=== PATIENT | female | born 1945 | race Caucasian/White ===

== ENCOUNTER 2019-06-12 16:17 | Inpatient (IN) | payer BC, MEDICARE ==
[~2019-06-12] VITALS: Ht 167.6 cm; Wt 47.2 kg
--- NOTE | 2019-06-12 19:50 | NUR ---
Received patient awake and oriented x 3 via gurney. Oriented patient to her bed and room. Denies SOB but c/o pain in the left lower extremities. Patient has a history of CVA with right sided weakness. snf assessment done. Skin is intact. Vital signs stable. Safety initiated. Call light within reach. Will closely monitor.
[2019-06-12] MEDS ORDERED: ROSU10TA2 PO (21:00)
[2019-06-12] MEDS ORDERED: HYDR-3972 PO (21:00)
[2019-06-12] MEDS ORDERED: NEBI5TAB8 PO (21:00)
[2019-06-12] MEDS ORDERED: HYDR-3980 PO (21:00)
[2019-06-12] MEDS ORDERED: ASPI81TA31 PO (21:00)
[2019-06-12 21:04] VITALS: BP 124/70
[2019-06-12] MEDS ORDERED: HYDROCODONE/APAP 5-325MG TABLET PO PRN (21:15)
[2019-06-12] MEDS: HYDROCODONE/APAP 10-325 MG TABLET PO PRN (21:34)
--- NOTE | 2019-06-12 21:45 | NUR ---
C/o pain on the left lower ext. 01/19. [place] 10-325 given, will closely monitor.
[2019-06-13] MEDS: HYDROCODONE/APAP 10-325 MG TABLET PO PRN ×2 (01:57→08:14)
--- NOTE | 2019-06-13 01:57 | NUR ---
Patient c/o pain in the left lower ext. 01/19. [place] given. Will continue to monitor.
[2019-06-13 05:30] VITALS: BP 148/76
--- NOTE | 2019-06-13 05:34 | NUR ---
Patient slept intermittently t/o shift. C/O pain in the left lower ext. heat pads and medication given, stated relief. Vital signs stable. Safety and comfort measures maintained t/o shift. All meds given as ordered. All needs met.
[2019-06-13 07:20] LABS: BASOPHILS % (AUTO) 0.5 % (0.0-2.0); EOSINOPHILS # (AUTO) 0.3 K/uL (0.0-0.7); EOSINOPHILS % (AUTO) 3.3 % (0.0-7.0); HEMATOCRIT 43.4 % (31.2-41.9); HEMOGLOBIN 14.4 g/dL (10.9-14.3); LYMPHOCYTES # (AUTO) 2.3 K/uL (20.0-40.0); LYMPHOCYTES % (AUTO) 28.4 % (20.5-51.5); MEAN CORPUSCULAR HEMOGLOBIN 28.7 uug (24.7-32.8); MEAN CORPUSCULAR HGB CONC 33 g/dL (32.3-35.6); MEAN CORPUSCULAR VOLUME 86.7 fL (75.5-95.3); MONOCYTES # (AUTO) 0.8 K/uL (2.0-10.0); MONOCYTES % (AUTO) 9.7 % (0.0-11.0); NEUTROPHILS # (AUTO) 4.7 K/uL (1.8-8.9); NEUTROPHILS % (AUTO) 58.1 % (38.5-71.5); PLATELET COUNT (AUTO) 340 K/uL (179-408); RED BLOOD CELL COUNT(AUTO) 5.01 MIL/uL (3.63-4.92); WHITE BLOOD COUNT (AUTO) 8.1 K/uL (3.8-11.8)
[2019-06-13 07:30] VITALS: BP 96/53
[2019-06-13 07:37] LABS: IRON, SERUM 50 ug/dL (50-175); THYROID STIMULATING HORMONE 1.294 mIU/mL (0.358-3.740)
[2019-06-13 07:56] LABS: ALANINE AMINOTRANSFERASE 18 U/L (14-59); ALKALINE PHOSPHATASE 59 U/L (50-136); ASPARTATE AMINOTRANSFERASE 18 U/L (15-37); BILIRUBIN,TOTAL 0.7 mg/dL (0.2-1.0); CARBON DIOXIDE 29 mmol/L (21-32); CHLORIDE 96 mmol/L (98-107); CHOLESTEROL 172 mg/dL (<200); CREATININE 0.7 mg/dL (0.6-1.3); GLUCOSE 95 mg/dL (74-106); HDL CHOLESTEROL 45 mg/dL (40-60); MAGNESIUM 1.9 mg/dL (1.8-2.4); PHOSPHOROUS 3.7 mg/dL (2.5-4.9); POTASSIUM 3.9 mmol/L (3.5-5.1); TOTAL PROTEIN, SERUM 7.1 g/dL (6.4-8.2); TRIGLYCERIDES 118 MG/DL (30-150); UREA NITROGEN, BLOOD 20 mg/dL (7-18)
[2019-06-13] MEDS: ASPIRIN 81 MG TAB.CHEW PO SCH (08:14)
[2019-06-13] MEDS: METOPROLOL TARTRATE 25 MG TABLET PO SCH ×2 (08:17→20:20)
[2019-06-13] MEDS ORDERED: Medication Not On Formulary EA (Rosuvastatin Calcium (Crestor) 10 MG) PO SCH (09:00)
[2019-06-13] MEDS: OXYCODONE HCL 5 MG TABLET PO PRN ×2 (11:10→20:26)
[2019-06-13 15:31] VITALS: BP 148/56
[2019-06-13] MEDS ORDERED: methylPREDNISolone ACETATE 80 MG VIAL IM ONE (19:00)
--- NOTE | 2019-06-13 19:20 | NUR ---
RECEIVED PATIENT IN BED, AWAKE. COMPLAINTS OF PAIN IN THE LEFT THIGH. WILL MEDICATE APPROPRIATELY. AO X 4. SAFETY PRECAUTIONS INITIATED. CALL LIGHT WITHIN REACH. WILL MONITOR ACCORDINGLY. Addendum: 06/14/19 at 0318 by TARSHA MARROQUIN RN PER DAY SHIFT NURSE: PATIENT'S DIET NEEDS TO BE CHANGED FROM REGULAR TO SOFT.
[2019-06-13 19:52] VITALS: BP 99/65
[2019-06-13] MEDS: ATORVASTATIN 20 MG TABLET PO SCH (20:20)
[2019-06-14] MEDS: OXYCODONE HCL 5 MG TABLET PO PRN ×4 (02:52→20:49)
--- NOTE | 2019-06-14 05:03 | NUR ---
PATIENT SLEPT INTERMITTENTLY THROUGHOUT THE NIGHT. COMPLAINED OF PAIN IN LEFT LEG. MEDICATED WITH PRN PAIN MEDICATIONS. SWALLOWS PILLS WITH APPLE SAUCE OR PUDDING. DIET CHANGED TO SOFT DIET. NO SIGNIFICANT CHANGE IN PATIENT CONDITION. WILL ENDORSE TO ONCOMING NURSE.
[2019-06-14 05:39] VITALS: BP 125/65
[2019-06-14 07:46] VITALS: BP 134/69
--- NOTE | 2019-06-14 08:00 | NUR ---
Received patient awake in bed lying flat, does not wanted to elevate HOB d/t pain. AAOx4. Complaining of LLE pain; will medicate appropriately. Safety measures implemented; plan of care initiated. Will continue to monitor.
[2019-06-14] MEDS ORDERED: PREGABALIN 25 MG CAPSULE PO SCH (09:00)
[2019-06-14] MEDS: METOPROLOL TARTRATE 25 MG TABLET PO SCH ×2 (09:00→20:30)
[2019-06-14] MEDS: ASPIRIN 81 MG TAB.CHEW PO SCH (09:10)
--- NOTE | 2019-06-14 13:19 | NUR ---
INTERDISCIPLINARY TEAM CONFERENCE
--- NOTE | 2019-06-14 13:47 | NUR ---
Received an order from Dr. De Paz during IDT meeting to increase Lyrica to 50mg PO daily for better pain control.
[2019-06-14 15:00] VITALS: BP 125/54
--- NOTE | 2019-06-14 18:15 | NUR ---
Patient complained of L leg pain throughout shift; medicated appropriately with PRN oxycodone 15 mg x2. Verbalized medication is effective but pain is still there. Heat packs applied for comfort. No s/s of acute distress. Will endorse care accordingly.
[2019-06-14 19:41] VITALS: BP 134/69
--- NOTE | 2019-06-14 19:50 | NUR ---
PATIENT ALERT ORIENTED, NO SOB NO CHEST PAIN. PATIENT COMPLAIN OF PAIN/DISCOMFORT ON LOWER BACK, AND LOWER EXTREMITIES, WILL MEDICATE PATIENT ORDERED. PATIENT KEPT COMFORTABLE, CALL LIGHT WITHIN REACH. CONT TO MONITOR.
[2019-06-14] MEDS: ATORVASTATIN 20 MG TABLET PO SCH (20:29)
[2019-06-15 05:42] VITALS: BP 117/61
--- NOTE | 2019-06-15 06:32 | NUR ---
PATIENT ALERT ORIENTED, NO SOB NO CHEST PAIN. PATIENT REQUIRES TOTAL ASSIST WITH ADL'S, KEPT COMFORTABLE, CALL LIGHT WITHIN REACH. CONT TO MONITOR.
[2019-06-15 08:00] VITALS: BP 143/73
[2019-06-15] MEDS: PREGABALIN 25 MG CAPSULE PO SCH (08:05)
[2019-06-15] MEDS: ASPIRIN 81 MG TAB.CHEW PO SCH (08:06)
[2019-06-15] MEDS: METOPROLOL TARTRATE 25 MG TABLET PO SCH ×2 (08:07→20:58)
[2019-06-15] MEDS: OXYCODONE HCL 5 MG TABLET PO PRN ×2 (09:06→19:42)
--- NOTE | 2019-06-15 12:27 | NUR ---
PATIENT COMPLAINED THAT IT IS TOO NOISY IN THIS ROOM, ALSO STATED THAT SHE CAN NOT SLEEP AT NIGHT BECAUSE OF NOISE, OFFERED PATIENT THE ROOM CHANGE, PATIENT AGREED AND CHANGED ROOM TO 123A.
--- NOTE | 2019-06-15 13:49 | NUR ---
PATIENT NOTED WITH NO BM, ORDER OBTAINED FROM DR CORONA FOR LAXATIVE MAGNESIUM CITRATE ONE BOTTLE NOW
--- NOTE | 2019-06-15 14:14 | NUR ---
INDIVIDUALIZE OVERALL PLAN OF CARE
[2019-06-15] MEDS ORDERED: MAGNESIUM CITRATE 296 ML BOTTLE PO ONE (15:00)
--- NOTE | 2019-06-15 15:34 | NUR ---
PATIENT IS ALERT, ORIENTED X3, VERBALLY RESPONSIVE, NO SOB,RESP EVEN NONLABORED,SKIN WARM AND DRY TO TOUCH, PAIN IS MANAGED WITH PAIN MEDICATION, PATIENT IS VERY RESISTANT TO PAIN MEDICATIONS, CONVINCED AND OFFERED PAIN MEDICATION AROUND THE CLOCK ORDERED, TOOK PAIN MEDICATION ONLY IN THE MORNING, OFFERED SHOWER, REFUSED, REFUSED TO SIT AT CHAIR, PATIENT STAYED IN BED WHOLE DAY. NOTED WITH NO BM, PATIENT IS DRINKING MAGNESIUM CITRATE ORDERED, BUT SLOWLY, WILL MONITOR IF PATIENT FINISHES THE BOTTLE ORDERED, WILL ENDORSE ACCORDINGLY.
[2019-06-15 16:08] VITALS: BP 120/62
--- NOTE | 2019-06-15 17:04 | NUR ---
PATIENT REFUSED TO DRINK MAGNESIUM CITRATE ANY MORE, ONLY DRANK IT HALF WAY. GOOD PERICARE PROVIDED GENTLY WITH ANOTHER NURSE.
--- NOTE | 2019-06-15 17:09 | NUR ---
OFFERED PAIN MEDICATION TO PATIENT REFUSED, ALSO REFUSED SCD PUMPS TO PUT ON. PATIENT RIGHT TO REFUSED RESPECTED
[2019-06-15 20:28] VITALS: BP 125/69
[2019-06-15] MEDS: ATORVASTATIN 20 MG TABLET PO SCH (20:58)
--- NOTE | 2019-06-16 05:44 | NUR ---
Shift End Report: VS stable. Slept good, Awakened at times with confusion and disorientation to place and time. Tends to scream for no apparent reason. Medicated for pain once with relief. No further complaint presented. No fall/injury reported. All needs attended and met. No significant event reported all night. Continue current rehab plan of care.
[2019-06-16 06:09] VITALS: BP 136/68
[2019-06-16 08:01] VITALS: BP 132/71
[2019-06-16] MEDS: METOPROLOL TARTRATE 25 MG TABLET PO SCH ×2 (08:58→20:28)
[2019-06-16] MEDS: PREGABALIN 25 MG CAPSULE PO SCH (08:58)
[2019-06-16] MEDS: ASPIRIN 81 MG TAB.CHEW PO SCH (08:58)
[2019-06-16] MEDS: OXYCODONE HCL 5 MG TABLET PO PRN (09:10)
[2019-06-16 16:13] VITALS: BP 150/100
[2019-06-16] MEDS ORDERED: IBUPROFEN 600 MG TABLET PO PRN (17:30)
[2019-06-16] MEDS ORDERED: ALBUTEROL SULFATE 2.5 MG/3 ML NEBU NEB PRN (19:00)
--- NOTE | 2019-06-16 19:00 | NUR ---
Patient is AAOx4. No acute distress noted. In stable condition. Vital signs taken and stable. Due medications administered as ordered and scheduled. patient noted with a right sided weakness still noted. On PT/OT therapy. NO c/o pain at this time. Needs attended, safety measures in place, call light left at bed side, endorsed to next shift and will continue with care.
[2019-06-16] MEDS: DOCUSATE SODIUM 100 MG CAPSULE PO SCH (20:27)
[2019-06-16] MEDS: ATORVASTATIN 20 MG TABLET PO SCH (20:27)
[2019-06-16 22:27] VITALS: BP 130/63
--- NOTE | 2019-06-16 23:00 | NUR ---
Received patient in bed. AAO x4. Not in acute distress or SOB. Able to make needs known. Physical assessment done. All due medications given as ordered and well tolerated. Fall prevention observed. Safety measures maintained. All needs attended promptly. Bed in low and lock position, alarm on, side rails up x2 for safety. Call light and frequently used items within reach. Continue to monitor.
--- NOTE | 2019-06-17 05:01 | NUR ---
Patient was stable during the shift but doesn't have a good sleep last night, was awake until library media specialist and watching TV. Stated," I always sleep late". Educated her about sleep hygiene. Asked her to turn off the TV and try to sleep that was effective. Continue to monitor and will endorse to the day shift nurse accordingly.
[2019-06-17] MEDS: IBUPROFEN 600 MG TABLET PO PRN ×2 (06:03→14:06)
[2019-06-17 06:29] VITALS: BP 132/57
[2019-06-17 07:31] LABS: ALANINE AMINOTRANSFERASE 16 U/L (14-59); ALKALINE PHOSPHATASE 79 U/L (50-136); ASPARTATE AMINOTRANSFERASE 16 U/L (15-37); BILIRUBIN,TOTAL 0.6 mg/dL (0.2-1.0); CARBON DIOXIDE 32 mmol/L (21-32); CHLORIDE 96 mmol/L (98-107); CREATININE 0.5 mg/dL (0.6-1.3); GLUCOSE 133 mg/dL (74-106); MAGNESIUM 2.2 mg/dL (1.8-2.4); PHOSPHOROUS 3.5 mg/dL (2.5-4.9); POTASSIUM 3.5 mmol/L (3.5-5.1); TOTAL PROTEIN, SERUM 6.9 g/dL (6.4-8.2); UREA NITROGEN, BLOOD 16 mg/dL (7-18)
[2019-06-17 08:00] VITALS: BP 115/44
[2019-06-17 08:22] LABS: BASOPHILS # (AUTO) 0.1 K/uL (0.0-8.0); BASOPHILS % (AUTO) 0.5 % (0.0-2.0); EOSINOPHILS # (AUTO) 0.2 K/uL (0.0-0.7); EOSINOPHILS % (AUTO) 2.4 % (0.0-7.0); HEMATOCRIT 39.7 % (31.2-41.9); HEMOGLOBIN 13.1 g/dL (10.9-14.3); LYMPHOCYTES # (AUTO) 1.3 K/uL (20.0-40.0); LYMPHOCYTES % (AUTO) 13.4 % (20.5-51.5); MEAN CORPUSCULAR HEMOGLOBIN 28.5 uug (24.7-32.8); MEAN CORPUSCULAR HGB CONC 33 g/dL (32.3-35.6); MEAN CORPUSCULAR VOLUME 86.5 fL (75.5-95.3); MONOCYTES # (AUTO) 1.2 K/uL (2.0-10.0); MONOCYTES % (AUTO) 12.2 % (0.0-11.0); NEUTROPHILS # (AUTO) 7.2 K/uL (1.8-8.9); NEUTROPHILS % (AUTO) 71.5 % (38.5-71.5); PLATELET COUNT (AUTO) 418 K/uL (179-408); RED BLOOD CELL COUNT(AUTO) 4.59 MIL/uL (3.63-4.92)
[2019-06-17] MEDS: MULTIVITAMINS,THERAPEUTIC TABLET PO SCH (09:00)
[2019-06-17] MEDS: ASPIRIN 81 MG TAB.CHEW PO SCH (09:01)
[2019-06-17] MEDS: PREGABALIN 25 MG CAPSULE PO SCH (09:02)
[2019-06-17] MEDS: METOPROLOL TARTRATE 25 MG TABLET PO SCH ×2 (09:03→20:21)
[2019-06-17] MEDS: MIRALAX 17 GM POWD.PACK PO PRN (14:56)
--- NOTE | 2019-06-17 15:00 | NUR ---
Pt received this morning resting in bed. Pt assessed, AOx3, able to make needs known. Pt c/o pain 02/19, PRN Motrin administered per MD orders, along with Miralax for c/o constipation. Plan of care discussed with family. Pt refused to sit up fully for breakfast or PO medication administration, stating "sciatica pain is unbearable" Pt teaching provided. Ice and heat measures offered and refused. Pt family reports Pt "believing she was at home" yesterday, while she was in the hospital on Oxycontin, requesting alternative medication be used instead. Pt strongly encouraged to cooperate with therapies as offered, reluctant to stand and ambulate but tolerated, 2 person assist. All safety and comfort needs attended to. VSS. Call light and personal items placed within reach. Bed in locked and lowest position with alarm on. Will continue to monitor.
[2019-06-17 16:46] VITALS: BP 103/54
[2019-06-17 19:27] VITALS: BP 114/58
--- NOTE | 2019-06-17 19:35 | NUR ---
Received patient in bed. AAO x4. Not in acute distress or SOB. On room air. Able to make needs known. Physical assessment done. Fall prevention observed. Safety measures maintained. Bed in low and lock position, alarm on, side rails up x2 for safety. Call light and frequently used items within reach. Continue to monitor.
[2019-06-17] MEDS: DOCUSATE SODIUM 100 MG CAPSULE PO SCH (20:20)
[2019-06-17] MEDS: ATORVASTATIN 20 MG TABLET PO SCH (20:20)
--- NOTE | 2019-06-17 20:20 | NUR ---
Collected urine sample using bed garcia and sent to the lab.
[2019-06-17 21:19] LABS: *BILIRUBIN,URIN NEGATIVE (NEGATIVE); *CLARITY,URINE CLEAR (CLEAR); *COLOR,URINE YELLOW (YELLOW); *KETONES,URINE NEGATIVE (NEGATIVE); *UROBILINOGEN,URINE 0.2 E.U./dl (NORMAL); LEUKOCYTE ESTERASE ,URINE NEGATIVE (NEGATIVE); NITRITE, URINE NEGATIVE (NEGATIVE); UGLUCOSE NEGATIVE (NEGATIVE)
[2019-06-17 21:22] LABS: *BLOOD, URINE NEGATIVE (NEGATIVE)
[2019-06-18] MEDS: IBUPROFEN 400 MG TABLET PO PRN ×2 (02:25→17:52)
--- NOTE | 2019-06-18 03:58 | NUR ---
Complained of pain in her legs, PRN Ibuprofen 400 mg administered. Warm pack provided to control her pain and effective. Continue to monitor.
--- NOTE | 2019-06-18 04:01 | NUR ---
Patient was stable during the shift and has a good sleep last night, compared to previous night. Continue to monitor and will endorse to the day shift nurse accordingly.
[2019-06-18 04:40] VITALS: BP 124/62
[2019-06-18] MEDS: PREGABALIN 50 MG CAPSULE PO SCH ×4 (06:00→21:46)
[2019-06-18] MEDS: PANTOPRAZOLE SODIUM 40 MG TABLET.DR PO SCH (06:20)
[2019-06-18 08:00] VITALS: BP 132/68
[2019-06-18] MEDS: ASPIRIN 81 MG TAB.CHEW PO SCH (09:02)
[2019-06-18] MEDS: MULTIVITAMINS,THERAPEUTIC TABLET PO SCH (09:02)
[2019-06-18] MEDS: METOPROLOL TARTRATE 25 MG TABLET PO SCH ×2 (09:03→20:36)
--- NOTE | 2019-06-18 11:35 | NUR ---
PATIENT LEFT FOR MRI WITH AMBULANCE, NO DISTRESS NOTED
--- NOTE | 2019-06-18 13:29 | NUR ---
PATIENT CAME BACK FROM MRI, PER TECH MRI PERFORMED ONLY WITHOUT CONTRAST, BECAUSE OF UNABLE TO GET THE VEIN ACCESS
[2019-06-18 16:35] VITALS: BP 141/69
--- NOTE | 2019-06-18 17:20 | NUR ---
PATIENT IS ALERT, ORIENTED X4, NO DISTRESS NOTED, PAIN MANAGED WITH LYRICA, EFFECTIVE.
--- NOTE | 2019-06-18 18:51 | NUR ---
Patient MRI of lumbar spine relayed to MD De Paz. no new order
--- NOTE | 2019-06-18 19:30 | NUR ---
Received patient in bed awake, alert and oriented. No SOB noted. No complaints of pain at this time. Safety measures observed. Call light in reach
[2019-06-18 20:00] VITALS: BP 132/67
[2019-06-18] MEDS: DOCUSATE SODIUM 100 MG CAPSULE PO SCH (20:36)
[2019-06-18] MEDS: ATORVASTATIN 20 MG TABLET PO SCH (20:36)
[2019-06-19 05:12] VITALS: BP 149/75
[2019-06-19] MEDS: PREGABALIN 50 MG CAPSULE PO SCH ×3 (06:11→21:35)
[2019-06-19] MEDS: PANTOPRAZOLE SODIUM 40 MG TABLET.DR PO SCH (06:11)
--- NOTE | 2019-06-19 06:46 | NUR ---
Patient slept well. No c/o pain at this time. All needs attended. Will endorse accordingly
[2019-06-19 08:00] VITALS: BP 110/63
[2019-06-19] MEDS: ASPIRIN 81 MG TAB.CHEW PO SCH (08:54)
[2019-06-19] MEDS: METOPROLOL TARTRATE 25 MG TABLET PO SCH ×2 (08:54→21:30)
[2019-06-19] MEDS: MULTIVITAMINS,THERAPEUTIC TABLET PO SCH (08:54)
[2019-06-19] MEDS: IBUPROFEN 400 MG TABLET PO PRN (08:55)
[2019-06-19] MEDS: BENZOCAINE/MENTH/CETYLPYRD LOZENGE MM PRN ×2 (12:44→15:50)
--- NOTE | 2019-06-19 14:02 | NUR ---
SPINAL EPIDURAL SCHEDULED ON MONDAY ON 06/21/2019, PLS GET THE CONSENT, HOLD ASPIRIN UNTIL MONDAY, NPO 8 HOURS BEFORE PROCDURE
[2019-06-19 16:43] VITALS: BP 119/57
--- NOTE | 2019-06-19 18:58 | NUR ---
DR JIMÉNEZ TRIED TO CALL SON LATHA, UNABLE TO REACH THE NUMBER, TRIED TO CALL SPOUSE, UNABLE TO REACH.
--- NOTE | 2019-06-19 19:03 | NUR ---
endorsed to next shift accordingly
--- NOTE | 2019-06-19 19:30 | NUR ---
Received patient in bed awake, A&Ox3. No SOB noted. No complaints of pain at this time. Safety measures observed. Call light in reach
[2019-06-19 19:59] VITALS: BP 106/61
[2019-06-19] MEDS: DOCUSATE SODIUM 100 MG CAPSULE PO SCH (21:27)
[2019-06-19] MEDS: ATORVASTATIN 20 MG TABLET PO SCH (21:29)
[2019-06-19] MEDS: HYDROMORPHONE HCL 2 MG TABLET PO PRN (21:33)
--- NOTE | 2019-06-19 22:30 | NUR ---
Consent signed for procedure on Monday placed in chart.
[2019-06-20 04:48] VITALS: BP 103/55
[2019-06-20] MEDS: PREGABALIN 50 MG CAPSULE PO SCH ×3 (06:46→21:14)
[2019-06-20] MEDS: PANTOPRAZOLE SODIUM 40 MG TABLET.DR PO SCH (06:46)
--- NOTE | 2019-06-20 07:11 | NUR ---
Patient slept well. No c/o pain at this time. All needs attended. Will endorse accordingly
[2019-06-20 07:41] VITALS: BP 109/57
[2019-06-20] MEDS: MULTIVITAMINS,THERAPEUTIC TABLET PO SCH (08:16)
[2019-06-20] MEDS: HYDROMORPHONE HCL 2 MG TABLET PO PRN ×2 (08:17→15:13)
[2019-06-20] MEDS: METOPROLOL TARTRATE 25 MG TABLET PO SCH ×2 (09:00→20:53)
[2019-06-20 15:30] VITALS: BP 128/56
--- NOTE | 2019-06-20 18:43 | NUR ---
Pt assessed, able to make needs known, no acute distress, or SOB. Pt reports pain being managed through medication regimen, for the most part, heat pack applied to left hip for pain relief measures. Son visited and provided accurate contact info, provided to MD regarding tomorrow's Epidural procedure. Pt teaching provided. VSS. Pt compliant with medication administration, refusing multivitamin only and therapies as offered. All safety and comfort needs attended to, call light and personal items within reach. Bed locked, in lowest position with side rails up x2, and alarm on. Will continue to monitor.
--- NOTE | 2019-06-20 19:45 | NUR ---
RECEIVED PT AWAKE, ALERT AND ORIENTEDX3. PT IN NO ACUTE DISTRESS . SAFETY AND COMFORT PROVIDED. PT KNOWS THAT SHE WILL HAVE SPINAL EPIDURAL [id number]. WILL CONTINUE TO MONITOR.
[2019-06-20 20:27] VITALS: BP 114/56
[2019-06-20] MEDS: ATORVASTATIN 20 MG TABLET PO SCH (20:52)
[2019-06-20] MEDS: DOCUSATE SODIUM 100 MG CAPSULE PO SCH (20:53)
[2019-06-21 04:21] VITALS: BP 132/60
[2019-06-21] MEDS: PREGABALIN 50 MG CAPSULE PO SCH ×3 (05:28→21:36)
[2019-06-21] MEDS: PANTOPRAZOLE SODIUM 40 MG TABLET.DR PO SCH (06:09)
--- NOTE | 2019-06-21 06:10 | NUR ---
HELD MORNING MEDICATIONS FOR PT WILL BE ON NPO FOR SPINAL EPIDURAL. PT IN NO ACUTE DISTRESS. SAFETY AND COMFORT PROVIDED.
--- NOTE | 2019-06-21 06:11 | NUR ---
PT SLEPT INTERMITTENTLY.PT IN NO ACUTE DISTRESS. PRESCRIBED MEDICATION GIVEN AND PT TOLERATED IT WELL. DAUGHTER AT BEDSIDE.SAFETY AND COMFORT PROVIDED. ALL NEEDS ARE MET. WILL ENDORSE ACCORDINGLY TO INCOMING NURSE FOR CONTINUITY OF CARE. Addendum: 06/21/19 at 0612 by SOPHIA DAVISON RN WRONG PT
--- NOTE | 2019-06-21 06:12 | NUR ---
PT SLEPT INTERMITTENTLY.PT IN NO ACUTE DISTRESS. PRESCRIBED MEDICATION GIVEN AND PT TOLERATED IT WELL. SAFETY AND COMFORT PROVIDED. ALL NEEDS ARE MET. WILL ENDORSE ACCORDINGLY TO INCOMING NURSE FOR CONTINUITY OF CARE.
--- NOTE | 2019-06-21 06:58 | NUR ---
GAVE REPORT TO OR REGARDING PT ALLERGY. VERIFIED WITH THE PT THAT SHE IS ONLY ALLERGIC TO LOBSTER BECAUSE SHE WAS TESTED BEFORE BY A SPECIALIST. ENDORSE TO INCOMING NURSE.
--- NOTE | 2019-06-21 07:15 | NUR ---
Received patient in bed, awake and verbally responsive. No signs of distress noted. No SOB. No complain of pain at this time. patient is NPO for Epidural Steroid Injection, kept clean and comfortable. kept the call light within easy reach. Will continue to monitor.
[2019-06-21 07:42] VITALS: BP 131/65
[2019-06-21] MEDS: MULTIVITAMINS,THERAPEUTIC TABLET PO SCH (09:00)
--- NOTE | 2019-06-21 09:22 | NUR ---
UNABLE TO START IV AFTER MULTI ATTEMPTS BETWEEN 3 NURSES. SPOKE WITH SURGERY THEY SAY ANESTHESIOLOGY WILL TRY TO START IV.
[2019-06-21] MEDS: METOPROLOL TARTRATE 25 MG TABLET PO SCH (09:50)
[2019-06-21] MEDS: HYDROMORPHONE HCL 2 MG TABLET PO PRN (09:51)
[2019-06-21] MEDS ORDERED: TRIAMCINOLONE ACETONIDE 40 MG/1 ML VIAL ONE (11:02)
[2019-06-21] MEDS ORDERED: IOHEXOL-240 MG , 50 ML VIAL IV ONE (11:56)
--- NOTE | 2019-06-21 12:05 | NUR ---
Patient was picked up to go to Surgery to have a Spinal Epidural steroid,
--- NOTE | 2019-06-21 13:45 | NUR ---
Patient came back from Surgery in stable condition, with Order to resume previous order and diet.
[2019-06-21] MEDS: LISINOPRIL 20 MG TABLET PO SCH ×2 (14:40→20:41)
[2019-06-21 15:49] VITALS: BP 143/63
--- NOTE | 2019-06-21 18:32 | NUR ---
patient in Bed, awake, alert and verbally responsive. No signs of distress noted. No SOB. Afebrile. pain medication given as ordered. All needs attended and met. Kept clean and comfortable. Kept the call light within easy reach. Will endorse to Oncoming Nurse.
--- NOTE | 2019-06-21 19:45 | NUR ---
Awake, watching TV at this time. Appears comfortable. Denies any pain/discomforts. Safety measure and afll precaution maintained. Continue care as planned.
[2019-06-21] MEDS: DOCUSATE SODIUM 100 MG CAPSULE PO SCH (20:40)
[2019-06-21] MEDS: ATORVASTATIN 20 MG TABLET PO SCH (20:40)
[2019-06-21 20:42] VITALS: BP 104/56
[2019-06-22] MEDS: PREGABALIN 50 MG CAPSULE PO SCH ×3 (05:55→21:01)
[2019-06-22 06:04] VITALS: BP 111/55
[2019-06-22] MEDS: PANTOPRAZOLE SODIUM 40 MG TABLET.DR PO SCH (06:07)
--- NOTE | 2019-06-22 07:16 | NUR ---
Shift End Report: VS stable. Slept in between care. No complaint presented. All needs attended and met. No significant event reported all night. Continue current rehab plan of care.
--- NOTE | 2019-06-22 07:45 | NUR ---
Received patient in bed, awake and verbally responsive. No signs of distress noted. No SOB. No signs of pain or discomfort noted. kept the call light within easy reach. Will continue to monitor.
[2019-06-22 08:10] VITALS: BP 98/47
[2019-06-22] MEDS: MULTIVITAMINS,THERAPEUTIC TABLET PO SCH (08:33)
[2019-06-22] MEDS: LISINOPRIL 20 MG TABLET PO SCH ×2 (08:34→20:49)
[2019-06-22] MEDS: HYDROMORPHONE HCL 2 MG TABLET PO PRN ×2 (08:41→18:23)
[2019-06-22 14:44] VITALS: BP 97/50
--- NOTE | 2019-06-22 18:39 | NUR ---
Patient in Bed, No signa of distress noted. no SOB. Pain medication given prior Physical therapy and PRN Pain medication Dilaudid 4 mg given as ordered for Back pain. All needs attended and met. Kept clean and comfortable. Kept the call light within easy reach. Will endorse to oncoming Nurse.
--- NOTE | 2019-06-22 19:30 | NUR ---
Received patient in bed, awake, and responsive. Patient in no apparent signs of distress, or SOB. Patient does not complain of pain at the moment Call light within reach. Safety protocols in place. Will continue to monitor.
[2019-06-22 19:41] VITALS: BP 109/50
[2019-06-22] MEDS: DOCUSATE SODIUM 100 MG CAPSULE PO SCH (20:49)
[2019-06-22] MEDS: ATORVASTATIN 20 MG TABLET PO SCH (20:50)
[2019-06-23 04:55] VITALS: BP 116/59
[2019-06-23] MEDS: PREGABALIN 50 MG CAPSULE PO SCH ×3 (05:22→21:10)
[2019-06-23] MEDS: PANTOPRAZOLE SODIUM 40 MG TABLET.DR PO SCH (06:09)
--- NOTE | 2019-06-23 06:39 | NUR ---
PATIENT ABLE TO SLEEP WELL THROUGHOUT THE NIGHT. TOLERATED MEDICATIONS. NO COMPLAINTS OF PAIN THROUGHOUT THE NIGHT. VITAL SIGNS WITHIN NORMAL LIMITS. ALL NEEDS ATTENDED. KEPT CLEAN AND DRY. COMFORT PROVIDED. CALL LIGHT WITHIN REACH. WILL ENDORSE TO ONCOMING NURSE.
[2019-06-23 08:00] VITALS: BP 114/68
[2019-06-23] MEDS: MULTIVITAMINS,THERAPEUTIC TABLET PO SCH (09:46)
[2019-06-23] MEDS: LISINOPRIL 20 MG TABLET PO SCH ×2 (09:46→21:11)
[2019-06-23] MEDS: HYDROMORPHONE HCL 2 MG TABLET PO PRN (13:57)
[2019-06-23 16:53] VITALS: BP 105/58
[2019-06-23 20:12] VITALS: BP 110/61
[2019-06-23] MEDS: DOCUSATE SODIUM 100 MG CAPSULE PO SCH (21:00)
[2019-06-23] MEDS: ATORVASTATIN 20 MG TABLET PO SCH (21:10)
--- NOTE | 2019-06-23 21:10 | NUR ---
Patient refused to take Colace cap 200 mg. Stated, I had this med at morning, I don't want to take it again". Risks and benefits explained, still refused. still refused. Continue to monitor.
[2019-06-24 04:35] VITALS: BP 134/72
[2019-06-24] MEDS: PANTOPRAZOLE SODIUM 40 MG TABLET.DR PO SCH (06:44)
[2019-06-24] MEDS: PREGABALIN 50 MG CAPSULE PO SCH ×3 (06:44→21:09)
[2019-06-24 08:00] VITALS: BP 134/73
[2019-06-24] MEDS: LISINOPRIL 20 MG TABLET PO SCH ×2 (10:18→21:10)
[2019-06-24] MEDS: MULTIVITAMINS,THERAPEUTIC TABLET PO SCH (10:18)
[2019-06-24] MEDS: HYDROMORPHONE HCL 2 MG TABLET PO PRN (10:19)
[2019-06-24] MEDS: MIRALAX 17 GM POWD.PACK PO PRN (14:38)
[2019-06-24 16:59] VITALS: BP 124/48
[2019-06-24 20:56] VITALS: BP 120/65
[2019-06-24] MEDS: ATORVASTATIN 20 MG TABLET PO SCH (21:09)
[2019-06-24] MEDS: DOCUSATE SODIUM 100 MG CAPSULE PO SCH (21:09)
--- NOTE | 2019-06-24 21:40 | NUR ---
Patient refused to take Colace cap 200 mg. Risks and benefits explained, still refused. still refused. Continue to monitor.
[2019-06-25 05:19] VITALS: BP 110/60
[2019-06-25] MEDS: PREGABALIN 50 MG CAPSULE PO SCH ×3 (06:31→21:39)
[2019-06-25] MEDS: PANTOPRAZOLE SODIUM 40 MG TABLET.DR PO SCH (06:31)
[2019-06-25 07:44] VITALS: BP 126/58
--- NOTE | 2019-06-25 08:00 | NUR ---
Received patient in bed, awake and verbally responsive. No signs of distress noted. No SOB. No signs of pain or discomfort noted. kept the call light within easy reach. Will continue to monitor for safety and comfort.
[2019-06-25] MEDS: MULTIVITAMINS,THERAPEUTIC TABLET PO SCH (09:00)
[2019-06-25] MEDS: IBUPROFEN 400 MG TABLET PO PRN (09:05)
[2019-06-25] MEDS: LISINOPRIL 20 MG TABLET PO SCH ×2 (09:06→21:39)
[2019-06-25 15:43] VITALS: BP 116/65
[2019-06-25] MEDS: HYDROMORPHONE HCL 2 MG TABLET PO PRN (15:48)
--- NOTE | 2019-06-25 18:00 | NUR ---
PT RESTING COMFORTABLY IN BED. NO ACUTE DISTRESS OR SOB NOTED. PT A+O X4. PT PLEASANT AND COOPERATIVE. PT IS DIET AND MED COMPLIANT. PAIN MANAGED WITH MEDS. BED LOCKED AND IN LOW POSITION. NO BM AT THIS TIME. WILL GIVE SHIFT CAHNGE REPORT ACCORDINGLY TO INCOMING SHIFT.
--- NOTE | 2019-06-25 19:45 | NUR ---
PT'S IN BED AWAKE, ALERT AND RESPONSIVE TO BOTH VERBAL AND TACTILE STIMULI, NOT IN DISTRESS, NO C/O PAIN AT THIS TIME, NOTED PT'S WITH BIG BAND AID DRESSING ON HER LOWER BACK DURING ASSESSMENT , ASKED WHAT HAPPENED, AND PT SAID THAT SHE HAD A BIG NEEDLE INJECTION THE OTHER DAY FOR PAIN , AREA CLEAN AND DRY.
[2019-06-25] MEDS: DOCUSATE SODIUM 100 MG CAPSULE PO SCH (21:00)
[2019-06-25 21:34] VITALS: BP 112/59
--- NOTE | 2019-06-25 21:34 | NUR ---
patient refused colace because pt. said it's hard to swallow.
[2019-06-25] MEDS: ATORVASTATIN 20 MG TABLET PO SCH (21:38)
[2019-06-26 06:23] VITALS: BP 137/72
[2019-06-26] MEDS: PREGABALIN 50 MG CAPSULE PO SCH ×3 (06:26→22:03)
[2019-06-26] MEDS: PANTOPRAZOLE SODIUM 40 MG TABLET.DR PO SCH (06:26)
--- NOTE | 2019-06-26 07:29 | NUR ---
ALL NEEDS ATTENDED, SLEPT AT SHORT INTERVAL . NO C/O PAIN NOR DISCOMFORT DURING THE SHIFT.
--- NOTE | 2019-06-26 08:00 | NUR ---
Received patient asleep in bed; easily arousable. AAOx4. No s/s of acute distress. Call light within reach. Safety measures implemented. Will continue to monitor.
[2019-06-26 09:00] VITALS: BP 142/60
[2019-06-26] MEDS: MULTIVITAMINS,THERAPEUTIC TABLET PO SCH (09:00)
[2019-06-26] MEDS: LISINOPRIL 20 MG TABLET PO SCH ×2 (09:44→20:49)
[2019-06-26] MEDS: HYDROMORPHONE HCL 2 MG TABLET PO PRN ×2 (09:49→18:42)
--- NOTE | 2019-06-26 17:59 | NUR ---
Patient resting in bed comfortably. No SOB noted. Verbalizes pain is tolerable at this time. Denies chest pain. Comfort provided at all times. Will endorse care accordingly.
--- NOTE | 2019-06-26 19:40 | NUR ---
Awake during initial rounds, conversing with ASSOCIATE PROFESSOR OF MEDIA ARTS at bedside. No complaint presented at this time. Safety measure and fall precaution maintained. Continue plan of care.
[2019-06-26 19:55] VITALS: BP 116/65
[2019-06-26] MEDS: DOCUSATE SODIUM 100 MG CAPSULE PO SCH (20:48)
[2019-06-26] MEDS: ATORVASTATIN 20 MG TABLET PO SCH (20:48)
[2019-06-27 04:40] VITALS: BP 109/56
[2019-06-27] MEDS: PREGABALIN 50 MG CAPSULE PO SCH ×3 (05:41→21:00)
[2019-06-27] MEDS: PANTOPRAZOLE SODIUM 40 MG TABLET.DR PO SCH (05:54)
--- NOTE | 2019-06-27 06:55 | NUR ---
Shift End Report: VS stable. Slept good. No complaint presented all night. All needs attended and met. No significant event reported. Continue current rehab plan of care.
[2019-06-27] MEDS: MULTIVITAMINS,THERAPEUTIC TABLET PO SCH ×2 (09:00→09:19)
[2019-06-27] MEDS: LISINOPRIL 20 MG TABLET PO SCH ×2 (09:24→20:46)
[2019-06-27] MEDS: HYDROMORPHONE HCL 2 MG TABLET PO PRN (09:25)
[2019-06-27 10:31] VITALS: BP 116/82
--- NOTE | 2019-06-27 15:15 | NUR ---
PATIENT CONTINUE PAIN MANAGEMENT PRIOR TO THERAPY AND IF NEEDED. NOT IN DISTRESS. CONTINUE THERAP FOR INCREASE STRENGHT AND ENDURANCE. TOLERATED WELL. WILL CONTINUE MONITOR
[2019-06-27 15:57] VITALS: BP 134/56
--- NOTE | 2019-06-27 19:40 | NUR ---
Received patient in bed. AAO x4. Not in acute distress or SOB. On room air. No complain of pain at this time. Able to make needs known. Physical assessment done. Fall prevention observed. Safety measures maintained. Bed in low and lock position, alarm on, side rails up x2 for safety. Call light and frequently used items within reach. Continue to monitor.
[2019-06-27 19:43] VITALS: BP 120/58
[2019-06-27] MEDS: ATORVASTATIN 20 MG TABLET PO SCH (20:45)
[2019-06-27] MEDS: DOCUSATE SODIUM 100 MG CAPSULE PO SCH (20:50)
--- NOTE | 2019-06-27 21:20 | NUR ---
Patient refused to take Colace cap 200 mg. Risks and benefits explained, still refused. Still refused. Continue to monitor.
[2019-06-28 05:02] VITALS: BP 111/61
[2019-06-28] MEDS: PREGABALIN 50 MG CAPSULE PO SCH ×2 (06:12→13:03)
[2019-06-28] MEDS: PANTOPRAZOLE SODIUM 40 MG TABLET.DR PO SCH (06:13)
[2019-06-28 07:26] LABS: BASOPHILS % (AUTO) 0.3 % (0.0-2.0); CREATININE 0.7 mg/dL (0.6-1.3); EOSINOPHILS # (AUTO) 0.2 K/uL (0.0-0.7); EOSINOPHILS % (AUTO) 1.4 % (0.0-7.0); HEMATOCRIT 39.3 % (31.2-41.9); LYMPHOCYTES # (AUTO) 1.8 K/uL (20.0-40.0); LYMPHOCYTES % (AUTO) 16.7 % (20.5-51.5); MEAN CORPUSCULAR HEMOGLOBIN 28.9 uug (24.7-32.8); MEAN CORPUSCULAR HGB CONC 33 g/dL (32.3-35.6); MEAN CORPUSCULAR VOLUME 87.6 fL (75.5-95.3); MONOCYTES % (AUTO) 9.5 % (0.0-11.0); NEUTROPHILS # (AUTO) 7.7 K/uL (1.8-8.9); NEUTROPHILS % (AUTO) 72.1 % (38.5-71.5); PHOSPHOROUS 4.3 mg/dL (2.5-4.9); POTASSIUM 4.4 mmol/L (3.5-5.1); RED BLOOD CELL COUNT(AUTO) 4.49 MIL/uL (3.63-4.92); WHITE BLOOD COUNT (AUTO) 10.7 K/uL (3.8-11.8)
[2019-06-28 07:29] LABS: PLATELET COUNT (AUTO) 309 K/uL (179-408)
[2019-06-28] MEDS: MULTIVITAMINS,THERAPEUTIC TABLET PO SCH (08:42)
[2019-06-28] MEDS: LISINOPRIL 20 MG TABLET PO SCH (08:42)
[2019-06-28 09:03] VITALS: BP 113/54
--- NOTE | 2019-06-28 13:44 | NUR ---
Patient for discharge. medicine list fax to [facility] to be pick pulling machine tender by . Medicine instruction given to patient. discharge summary and instruction given to pharmacy. verbalize understanding. Continue pain management and given at 1pm. not in distress. will continue monitor
--- NOTE | 2019-06-28 15:13 | NUR ---
PATIENT DISCHARGE TO HOME AROUND 3PM VIA [facility] WITH 2 EMT IN STABLE CONDITION. NOT IN DISTRESS. THANKFUL FOR THE CARE GIVEN. MD MARROQUIN.
== END 2019-06-28 15:00 | disposition home health service (06) | DRG 56 ==
PROVIDERS: ADMIT Physical Medicine & Rehabilitation Pain Medicine; ATTEND Physical Medicine & Rehabilitation Pain Medicine
DX: I69.351 Hemiplegia and hemiparesis following cerebral infarction affecting right dominant side (principal); N17.0 Acute kidney failure with tubular necrosis; D68.59 Other primary thrombophilia; E44.1 Mild protein-calorie malnutrition; E78.5 Hyperlipidemia, unspecified; F17.210 Nicotine dependence, cigarettes, uncomplicated; I10 Essential (primary) hypertension; K57.30 Diverticulosis of large intestine without perforation or abscess without bleeding; M19.90 Unspecified osteoarthritis, unspecified site; M43.17 Spondylolisthesis, lumbosacral region; M54.17 Radiculopathy, lumbosacral region; M81.0 Age-related osteoporosis without current pathological fracture; S32.10XD Unspecified fracture of sacrum, subsequent encounter for fracture with routine healing; R62.7 Adult failure to thrive; Z91.81 History of falling; R26.81 Unsteadiness on feet; I11.9 Hypertensive heart disease without heart failure; I70.0 Atherosclerosis of aorta; M48.061 Spinal stenosis, lumbar region without neurogenic claudication; Z88.1 Allergy status to other antibiotic agents; Z91.013 Allergy to seafood; M51.37 Other intervertebral disc degeneration, lumbosacral region; M46.90 Unspecified inflammatory spondylopathy, site unspecified; M54.32 Sciatica, left side; R05 Cough; J44.9 Chronic obstructive pulmonary disease, unspecified; W19.XXXD Unspecified fall, subsequent encounter
CPT/HCPCS: 36415; 70030-TC; 71045; 72148; 82652; 83550; 83735; 84100; 84443; 85025; 87086; 93005; 93307; A4663; G0515; J1040; J3301; Q9966

== ENCOUNTER 2019-06-21 13:00 | Day surgery (SDC) | payer MEDICARE ==
[2019-06-21] MEDS ORDERED: IV NORMAL SALINE 1000 ML BAG IV ONE (13:01)
[2019-06-21] MEDS ORDERED: LIDOCAINE-MPF 2% 5 ML VIAL IJ ONE (13:01)
[2019-06-21] MEDS ORDERED: PROPOFOL 200 MG/20 ML BOTTLE IV ONE (13:01)
== END 2019-06-21 13:50 ==
LOC: DS 13:00
PROVIDERS: ATTEND Physical Medicine & Rehabilitation Pain Medicine
DX: M51.17 Intervertebral disc disorders with radiculopathy, lumbosacral region (principal); I10 Essential (primary) hypertension; I69.351 Hemiplegia and hemiparesis following cerebral infarction affecting right dominant side; Z87.891 Personal history of nicotine dependence; Z79.82 Long term (current) use of aspirin; Z79.899 Other long term (current) drug therapy; Z88.0 Allergy status to penicillin; Z88.8 Allergy status to other drugs, medicaments and biological substances
CPT/HCPCS: 72100; J3490; J7030